=== PATIENT | female | born 1975 | race Caucasian/White ===

== ENCOUNTER 2024-10-11 06:44 | Day surgery (SDC) | payer OTHER ==
[~2024-10-11] VITALS: Ht 167.6 cm; Wt 58.1 kg
[~2024-10-11 06:44] MED LIST: ACET-907 PO; AMPH1CAP5 PO; CYCLOPENTOLATE 1% OPHTH SOLN 2 ML BTL OD SCH; DULO1CAP5 PO; LIFI1DRO4 OU; OFAT20PE SC; PANT20TA6 PO; PHENYLEPHRINE 10% OPHTH SOL 5ML OD PRN; TRAZ-252 PO; VITA500038 PO
[2024-10-11] MEDS ORDERED: MIDAZOLAM INJ 2 MG/2 ML VIAL As Ordered ONE (07:04)
[2024-10-11] MEDS: OFLOXACIN 0.3 % (OCUFLOX) OPTH SOL 5ML OD ONE (07:23)
[2024-10-11] MEDS: LIDOCAINE 3.5% 1 ML OPHTH TOPICAL GEL OU ONE (07:23)
[2024-10-11] MEDS: TROPICAMIDE 1% OPHTH SOLN 15ML OD SCH (07:24)
[2024-10-11] MEDS: PHENYLEPHRINE 2.5% OPHTH SOL 2ML OD SCH (07:24)
[2024-10-11] MEDS: BSS IRRIG/VANCO(10MG)/TOBRA(5MG)/EPINEPH(1:1000-0.5CC)500ML BAG-ORONLY As Ordered ONE (08:24)
[2024-10-11] MEDS: LIDOCAINE 1% SDV 5 ML VIAL As Ordered ONE (08:24)
[2024-10-11] MEDS: CEFUROXIME 1 MG/0.1 ML INTRACAMERAL INJ As Ordered ONE (08:24)
[2024-10-11 08:32] VITALS: BP 110/53; TEMP 97.9; O2SAT 100
== END 2024-10-11 08:52 | disposition home or self-care (01) ==
LOC: M SDC 06:44
PROVIDERS: ATTEND Ophthalmology
DX: H25.11 Age-related nuclear cataract, right eye (principal); G35 Multiple sclerosis; F17.210 Nicotine dependence, cigarettes, uncomplicated; K21.9 Gastro-esophageal reflux disease without esophagitis; Z79.899 Other long term (current) drug therapy; Z98.84 Bariatric surgery status
CPT/HCPCS: 66984; 81025; J0697; J2250; J3010; V2632

== ENCOUNTER 2025-01-28 17:24 | Inpatient (IN) | payer OTHER ==
[~2025-01-28] VITALS: Ht 167.6 cm; Wt 60.5 kg
[~2025-01-28 17:24] MED LIST changes: -CYCLOPENTOLATE 1% OPHTH SOLN 2 ML BTL OD SCH; -PHENYLEPHRINE 10% OPHTH SOL 5ML OD PRN
[2025-01-28] MEDS: MORPHINE 4 MG/ML 1 ML VIAL IV PRN (18:09)
[2025-01-28 18:17] LABS: BASO # 0.0 10^3/uL (0.0-0.2); BASO % 0.1 % (0.0-1.0); EOS # 0.1 10^3/uL (0.0-0.5); EOS % 0.7 % (0.0-3.0); LYMPH # 0.8 10^3/uL (1.5-5.0); LYMPH % 8.7 % (24.0-44.0); MONO # 0.4 10^3/uL (0.0-0.8); MONO % 4.8 % (2.0-8.0); NEUTROPHILS # 7.6 10^3/uL (1.5-8.5); NEUTROPHILS % 85.5 % (36.0-66.0); PLATELET COUNT, AUTOMATED 313 10^3/uL (150-450)
[2025-01-28 18:34] LABS: ALT/SGPT 12 U/L (7.0-40); AST/SGOT 23 U/L (<34)
[2025-01-28] MEDS ORDERED: ISOVUE-370 76% 100 ML VIAL As Ordered ONE (18:40)
[2025-01-28] MEDS: HYDROMORPHONE HCL 0.5 MG/0.5 ML SYRINGE IV ONE (18:43)
[2025-01-28 18:58] LABS: INR 0.98
[2025-01-28] MEDS: PIPERACILLIN/TAZOBACTAM SOD 3.375 GM in DEXTROSE 5% (D5W) ADV/MINI-BAG 50 ML IV ONE (20:15)
[2025-01-28] MEDS: HYDROMORPHONE HCL 0.5 MG/0.5 ML SYRINGE IV PRN (20:16)
[2025-01-28] MEDS: FLUCONAZOLE 200 MG in IV 1 EA IV ONE (20:42)
[2025-01-28] MEDS: PANTOPRAZOLE 40MG VIAL IV ONE (20:42)
[2025-01-28] MEDS ORDERED: CYAN100017 INJ (20:58)
[2025-01-28] MEDS ORDERED: HOME MED LIST COMPLETE! XX SCH (21:00)
[2025-01-28] MEDS ORDERED: LIDOCAINE 2% 100 MG/5 ML SDV (FOR ANES.) As Ordered ONE (21:06)
[2025-01-28] MEDS ORDERED: MIDAZOLAM INJ 2 MG/2 ML VIAL As Ordered ONE (21:06)
[2025-01-28] MEDS ORDERED: dexAMETHasone 4 MG/ML 1 ML VIAL As Ordered ONE (21:06)
[2025-01-28] MEDS ORDERED: ONDANSETRON 4MG/2ML VIAL As Ordered ONE (21:06)
[2025-01-28] MEDS ORDERED: SUGAMMADEX SODIUM 200 MG/2 ML VIAL As Ordered ONE (21:07)
[2025-01-28] MEDS ORDERED: ROCURONIUM BROMIDE 50MG/5ML VIAL As Ordered ONE (21:07)
[2025-01-28] MEDS ORDERED: ACETAMINOPHEN 1000MG/100ML IV BAG As Ordered ONE (22:37)
[2025-01-28] MEDS ORDERED: HYDROMORPHONE HCL 0.5 MG/0.5 ML SYRINGE IV PRN (23:45)
[2025-01-28] MEDS ORDERED: LR 1,000 ML IV SCH (23:45)
[2025-01-28] MEDS ORDERED: ONDANSETRON 4MG/2ML VIAL IV PRN (23:45)
[2025-01-29] VITALS (11 sets, daily range): BP systolic 102–126; BP diastolic 55–64; TEMP 98.2–100.8; O2SAT 96–99
[2025-01-29] MEDS ORDERED: MORPHINE 2 MG/ML 1 ML VIAL IV PRN (00:10)
[2025-01-29] MEDS: SUCRALFATE SUSP 1GM/10ML UD PO SCH (02:06)
[2025-01-29] MEDS: LR 1,000 ML IV SCH (03:39)
[2025-01-29] MEDS: PIPERACILLIN/TAZOBACTAM SOD 3.375 GM in DEXTROSE 5% (D5W) ADV/MINI-BAG 50 ML IV SCH (04:49)
[2025-01-29] MEDS: CHLORASEPTIC SPRAY MT PRN (06:53)
[2025-01-29] MEDS: ACETAMINOPHEN *IV* 1,000 MG in IV 1 EA IV PRN (06:54)
[2025-01-29 07:14] LABS: PLATELET COUNT, AUTOMATED 250 10^3/uL (150-450)
[2025-01-29] MEDS: NICOTINE 21 MG/24 HR 1 EA TRANSDERMAL TD SCH (08:05)
[2025-01-29] MEDS: PANTOPRAZOLE 40MG VIAL IV SCH (08:05)
[2025-01-29 09:01] LABS: ALT/SGPT 32 U/L (7.0-40); AST/SGOT 49 U/L (<34); CALCIUM LEVEL 8.5 MG/DL (8.5-10.1); CARBON DIOXIDE LEVEL 23 MMOL/L (20-31); CHLORIDE LEVEL 107 MMOL/L (98-107); CREATININE FOR GFR 0.46 MG/DL (0.55-1.30); GLOMERULAR FILTRATION RATE > 90.0 (>58); POTASSIUM SERUM 4.0 MMOL/L (3.5-5.1); SODIUM LEVEL 139 MMOL/L (136-145)
[2025-01-29] MEDS ORDERED: GLUCOSE 4 GM CHEW PO PRN (10:20)
[2025-01-29] MEDS ORDERED: GLUCAGON INJ 1 MG VIAL SC PRN (10:20)
[2025-01-29] MEDS ORDERED: DEXTROSE 50% 50 ML SYRINGE IV PRN (10:20)
[2025-01-29] MEDS: MORPHINE 2 MG/ML 1 ML VIAL IV PRN (11:02)
[2025-01-29] MEDS: HYDROMORPHONE HCL 0.5 MG/0.5 ML SYRINGE IV PRN (12:49)
[2025-01-29] MEDS ORDERED: PIPERACILLIN/TAZOBACTAM SOD 4.5 GM in DEXTROSE 5% (D5W) ADV/MINI-BAG 50 ML IV SCH (14:00)
[2025-01-29] MEDS: PIPERACILLIN/TAZOBACTAM SOD 4.5 GM in DEXTROSE 5% (D5W) ADV/MINI-BAG 50 ML IV SCH (18:36)
[2025-01-29] MEDS: CEPACOL LOZENGE PO PRN (20:30)
[2025-01-29] MEDS: ONDANSETRON 4MG/2ML VIAL IV PRN (20:30)
[2025-01-29] MEDS: ENOXAPARIN 40 MG/0.4 ML SYRINGE (J1650 PER 10MG) SC SCH (22:01)
[2025-01-30 00:30] VITALS: BP 109/58; TEMP 97.9; O2SAT 96
[2025-01-30 04:30] VITALS: BP 102/59; TEMP 98.1; O2SAT 97
[2025-01-30 07:15] LABS: PLATELET COUNT, AUTOMATED 234 10^3/uL (150-450)
[2025-01-30 07:47] LABS: ALT/SGPT 20 U/L (7.0-40); AST/SGOT 24 U/L (<34); CALCIUM LEVEL 7.6 MG/DL (8.5-10.1); CARBON DIOXIDE LEVEL 24 MMOL/L (20-31); CHLORIDE LEVEL 108 MMOL/L (98-107); CREATININE FOR GFR 0.54 MG/DL (0.55-1.30); GLOMERULAR FILTRATION RATE > 90.0 (>58); MAGNESIUM LEVEL 1.5 MG/DL (1.8-2.4); POTASSIUM SERUM 3.6 MMOL/L (3.5-5.1); SODIUM LEVEL 139 MMOL/L (136-145)
[2025-01-30 12:00] VITALS: BP 103/56; TEMP 98.6; O2SAT 98
[2025-01-30 16:00] VITALS: BP 94/53; TEMP 98.7; O2SAT 98
[2025-01-30 19:51] VITALS: BP 114/60; TEMP 98.7; O2SAT 99
[2025-01-31] VITALS (9 sets, daily range): BP systolic 97–119; BP diastolic 51–59; TEMP 97.9–101.5; O2SAT 97–100
[2025-01-31] MEDS ORDERED: SIMETHICONE 40MG/0.6ML DROPS 30ML PO PRN (02:15)
[2025-01-31] MEDS: SIMETHICONE 40MG/0.6ML DROPS 30ML PO PRN (04:01)
[2025-02-01 05:36] VITALS: BP 108/55; TEMP 98.4; O2SAT 100
[2025-02-01 05:47] LABS: PLATELET COUNT, AUTOMATED 241 10^3/uL (150-450)
[2025-02-01 06:10] LABS: BASO # 0.0 10^3/uL (0.0-0.2); BASO % 0.4 % (0.0-1.0); EOS # 0.3 10^3/uL (0.0-0.5); EOS % 4.6 % (0.0-3.0); LYMPH # 1.2 10^3/uL (1.5-5.0); LYMPH % 21.2 % (24.0-44.0); MONO # 0.7 10^3/uL (0.0-0.8); MONO % 12.1 % (2.0-8.0); NEUTROPHILS # 3.5 10^3/uL (1.5-8.5); NEUTROPHILS % 61.3 % (36.0-66.0)
[2025-02-01 06:27] LABS: ALT/SGPT 11 U/L (7.0-40); AST/SGOT 16 U/L (<34); CALCIUM LEVEL 7.9 MG/DL (8.5-10.1); CARBON DIOXIDE LEVEL 28 MMOL/L (20-31); CHLORIDE LEVEL 106 MMOL/L (98-107); CREATININE FOR GFR 0.48 MG/DL (0.55-1.30); GLOMERULAR FILTRATION RATE > 90.0 (>58); MAGNESIUM LEVEL 1.9 MG/DL (1.8-2.4); POTASSIUM SERUM 3.4 MMOL/L (3.5-5.1); SODIUM LEVEL 140 MMOL/L (136-145)
[2025-02-01 07:50] VITALS: BP 98/51; TEMP 98.7; O2SAT 99
[2025-02-01] MEDS ORDERED: HYDR-3713 PO (09:32)
[2025-02-01] MEDS ORDERED: PANT40TA29 PO (09:32)
[2025-02-01] MEDS ORDERED: SUCR1ORA PO (09:32)
[2025-02-01] MEDS ORDERED: NICO1PAT35 TD (10:23)
[2025-02-01 11:59] VITALS: BP 102/56; TEMP 97.5; O2SAT 99
== END 2025-02-01 12:55 | disposition home or self-care (01) | DRG 222 ==
LOC: EDBD 17:24 → M ED 19:38 → M ED INP 20:35 → M PED 01-29 01:01 → M MSPAV 01-30 15:52
PROVIDERS: ADMIT Surgery; ATTEND Internal Medicine
PROC: 0DQ64ZZ Repair Stomach, Percutaneous Endoscopic Approach (ICD-10-PCS; principal; 2025-01-28 21:30)
PROC: 8E0W8CZ Robotic Assisted Procedure of Trunk Region, Via Natural or Artificial Opening Endoscopic (ICD-10-PCS; 2025-01-28 21:30)
DX: K28.5 Chronic or unspecified gastrojejunal ulcer with perforation (principal); G35.D Multiple sclerosis, unspecified; M19.90 Unspecified osteoarthritis, unspecified site; F17.200 Nicotine dependence, unspecified, uncomplicated; Z71.6 Tobacco abuse counseling; Z79.899 Other long term (current) drug therapy; Z88.8 Allergy status to other drugs, medicaments and biological substances; Z98.84 Bariatric surgery status; F41.9 Anxiety disorder, unspecified